=== PATIENT | male | born 1960 | race Caucasian/White ===

== ENCOUNTER 2022-07-25 07:02 | Inpatient (IN) | payer OTHER ==
[2022-07-22 12:39] LABS: APPEARANCE,URINE CLEAR (CLEAR); BILIRUBIN,URINE NEGATIVE (NEGATIVE); COLOR,URINE LIGHT-YELLOW (YELLOW); GLUCOSE, URINE (UA) NEGATIVE (NEGATIVE); KETONES,URINE NEGATIVE (NEGATIVE); LEUKOCYTE ESTERASE ,URINE NEGATIVE Leu/uL (NEGATIVE); NITRATE,URINE NEGATIVE (NEGATIVE); OCCULT BLOOD,URINE NEGATIVE (NEGATIVE); PROTEIN,URINE NEGATIVE (NEGATIVE); UROBILINOGEN,URINE 0.2 mg/dL (0.2-1.0)
[2022-07-22 12:52] VITALS: BP 127/74
[2022-07-22 12:52] LABS: BASOPHILS % (AUTO) 0.6 % (0.0-5.0); EOSINOPHILS % (AUTO) 6.6 % (0.0-8.0); HEMATOCRIT 42.8 % (42-54); LYMPHOCYTES % (AUTO) 27.2 % (21.0-51.0); MEAN CORPUSCULAR HEMOGLOBIN 28.9 pg (27.0-33.0); MEAN CORPUSCULAR HGB CONC 31.8 g/dL (32.0-36.0); MEAN CORPUSCULAR VOLUME 90.9 fL (79-99); MONOCYTES % (AUTO) 8.5 % (3.0-13.0); NEUTROPHILS % (AUTO) 56.9 % (40.0-77.0); PLATELET COUNT (AUTO) 297 K/uL (130-400); RED BLOOD CELL COUNT(AUTO) 4.71 MIL/uL (4.50-6.20); RED CELL DISTRIBUTION WIDTH 13.1 % (11.0-15.5); WHITE BLOOD COUNT (AUTO) 6.2 K/uL (4.8-10.8)
[2022-07-22 13:04] LABS: INR 0.97 (0.85-1.15); PROTHROMBIN TIME 10.6 SEC (9.6-11.6)
[2022-07-22 13:05] LABS: PARTIAL THROMBOPLASTIN TIME 29.8 SEC (26.3-35.5)
[2022-07-22 13:12] LABS: ALBUMIN 3.6 g/dL (3.5-5.0); CARBON DIOXIDE 31 mmol/L (21-32); CHLORIDE 102 mmol/L (101-111); CREATININE 0.9 mg/dL (0.5-1.5); GLOMERULAR FILTR. RATE CALC 96 mL/min (>90); GLUCOSE,RANDOM 93 mg/dL (70-105); POTASSIUM 4.1 mmol/L (3.5-5.1); SODIUM SERUM 140 mmol/L (136-145); UREA NITROGEN, BLOOD 11 mg/dL (7-18)
[2022-07-22 13:28] LABS: CRP QUANTITATIVE < 2.00 mg/L (0.00-9.0)
[2022-07-25] VITALS (23 sets, daily range): BP systolic 108–175; BP diastolic 64–98
[~2022-07-25] VITALS: Ht 177.8 cm; Wt 86.5 kg
[~2022-07-25 07:02] MED LIST: ALBU90AE2 IH; BUSP15TA3 PO; DOCU240C25 PO; EZET10TA48 PO; FAMO40TA7 PO; FLUO20CA36 PO; FLUT1BLS8 IH; LEVO100C4 PO; OMEP40CA21 PO; ROSU20TA31 PO; TRAM50TA4 PO; UMEC62.5 IH; VIT1CAPS47 PO
[2022-07-25] MEDS ORDERED: CEFAZOLIN SODIUM 2 GM VIAL ONE (07:29)
[2022-07-25] MEDS ORDERED: LACTATED RINGERS 1000ML 1,000 ML IV ONE (07:30)
[2022-07-25] MEDS ORDERED: CEFAZOLIN SODIUM 1 GM VIAL ONE (08:10)
[2022-07-25] MEDS ORDERED: CEFAZOLIN SODIUM 2 GM VIAL IVPB ONE (11:26)
[2022-07-25] MEDS ORDERED: SUCCINYLCHOLINE CHLORIDE 20 MG/ML 10 ML VIAL ONE (13:06)
[2022-07-25] MEDS ORDERED: ROCURONIUM 10MG/1ML SYR 10 MG/ML ML ONE ×2 (13:06→13:07)
[2022-07-25] MEDS ORDERED: LIDOCAINE PF 100MG/5ML (2%) SYRINGE 5ML ONE (13:06)
[2022-07-25] MEDS ORDERED: NEOSTIGMINE 5MG/5ML SYR IV ONE ×2 (13:07→14:28)
[2022-07-25] MEDS ORDERED: ONDANSETRON 4MG INJ ONE (13:07)
[2022-07-25] MEDS ORDERED: PROPOFOL 10 MG/ML 20ML VIAL IV ONE (13:07)
[2022-07-25] MEDS ORDERED: GLYCOPYRROLATE 1 MG/5 ML SYRINGE ONE (13:07)
[2022-07-25] MEDS ORDERED: MIDAZOLAM HCL 1 MG/ML 2ML VIAL ONE (13:07)
[2022-07-25] MEDS ORDERED: FENTANYL CITRATE PF 50 MCG/1 ML 2ML VIAL ONE (13:07)
[2022-07-25] MEDS ORDERED: FE FUMARATE/FA/MV, MIN COMB#15 1 TAB PO PRN (14:30)
[2022-07-25] MEDS ORDERED: KCL 20 MEQ ERTAB PO PRN (14:30)
[2022-07-25] MEDS ORDERED: CALCIUM CARB 500MG PO PRN (14:30)
[2022-07-25] MEDS ORDERED: LIDOCAINE HCL-MPF 1% 2ML VIAL IV PRN (14:30)
[2022-07-25] MEDS ORDERED: DiphenhydrAMINE HCL 50 MG/ML VIAL IVP PRN (14:30)
[2022-07-25] MEDS ORDERED: CYCLOBENZAPRINE HCL 10 MG TABLET PO PRN (14:30)
[2022-07-25] MEDS ORDERED: POTASSIUM CHLORIDE 10% ELIXIR 20 MEQ/15 ML UDCUP PO PRN (14:30)
[2022-07-25] MEDS ORDERED: ONDANSETRON 4MG INJ IVP PRN (14:30)
[2022-07-25] MEDS ORDERED: POTASSIUM CHLORIDE 20MEQ/100ML 100 ML IV PRN (14:30)
[2022-07-25] MEDS ORDERED: TRAMADOL HCL 50 MG TABLET PO PRN (14:30)
[2022-07-25] MEDS ORDERED: MEPERIDINE-PF 25 MG/ML SYG ONE ×2 (15:08→15:12)
[2022-07-25] MEDS: KETOROLAC 15MG/ML VIAL (15MG/ML) IV SCH ×2 (15:42→22:35)
[2022-07-25] MEDS: 0.9%NACL 1000ML 1,000 ML IV SCH (16:02)
[2022-07-25] MEDS ORDERED: ALBUTEROL SULFATE IH PRN (18:00)
[2022-07-25] MEDS: PHARMACY COMMUNICATION MISC SCH ×5 (19:00→23:00)
[2022-07-25] MEDS: CEFAZOLIN SODIUM 1 GM VIAL IVP SCH (20:22)
[2022-07-25] MEDS: FLUOXETINE HCL 20 MG CAPSULE PO SCH (20:23)
[2022-07-25] MEDS: MULTIVITAMIN TABLET PO SCH (20:23)
[2022-07-25] MEDS: DOCUSATE SODIUM 100 MG CAP PO SCH (20:23)
[2022-07-25] MEDS: FLUTICASONE PROPION IH SCH (20:24)
[2022-07-25] MEDS: SALMETEROL IH SCH (20:24)
[2022-07-25] MEDS: Rosuvastatin Calcium 20 MG PO SCH (20:25)
[2022-07-25] MEDS: BUSPIRONE HCL 5 MG TABLET PO SCH (20:26)
[2022-07-25] MEDS: EZETIMIBE 10 MG TAB PO SCH (20:28)
[2022-07-25] MEDS: GABAPENTIN 100 MG CAPSULE PO SCH (20:28)
[2022-07-25] MEDS ORDERED: NON-FORMULARY MEDICATION 1 EACH (Buspirone HCl 15 MG) PO SCH (21:00)
[2022-07-25] MEDS ORDERED: NON-FORMULARY MEDICATION 1 EACH (Vit C/E/Zn/Coppr/Lutein/Zeaxan (Preservision Areds 2 Soft PO SCH (21:00)
[2022-07-25] MEDS ORDERED: ALBUTEROL INHALER 90MCG/INH IH PRN (22:30)
[2022-07-26] MEDS: 0.9%NACL 1000ML 1,000 ML IV SCH ×2 (00:30→10:30)
[2022-07-26] MEDS: PHARMACY COMMUNICATION MISC SCH ×5 (01:00→20:36)
[2022-07-26] MEDS: CEFAZOLIN SODIUM 1 GM VIAL IVP SCH (02:43)
[2022-07-26] MEDS: HYDROCODONE/ACETAMINOPHEN 5/325 MG TAB PO PRN ×3 (02:43→20:34)
[2022-07-26 04:38] VITALS: BP 114/64
[2022-07-26 05:37] LABS: HEMATOCRIT 33.3 % (42-54); MEAN CORPUSCULAR HEMOGLOBIN 29.6 pg (27.0-33.0); MEAN CORPUSCULAR HGB CONC 32.1 g/dL (32.0-36.0); MEAN CORPUSCULAR VOLUME 92.2 fL (79-99); RED BLOOD CELL COUNT(AUTO) 3.61 MIL/uL (4.50-6.20); RED CELL DISTRIBUTION WIDTH 13.3 % (11.0-15.5); WHITE BLOOD COUNT (AUTO) 7.6 K/uL (4.8-10.8)
[2022-07-26] MEDS: LEVOTHYROXINE 100 MCG TABLET PO SCH (05:46)
[2022-07-26] MEDS: KETOROLAC 15MG/ML VIAL (15MG/ML) IV SCH (05:47)
[2022-07-26 05:49] LABS: CREATININE 0.8 mg/dL (0.5-1.5); POTASSIUM 4.1 mmol/L (3.5-5.1)
[2022-07-26] MEDS ORDERED: NON-FORMULARY MEDICATION 1 EACH (Levothyroxine Sodium (Levothyroxine) 100 MCG) PO SCH (07:30)
[2022-07-26 08:13] VITALS: BP 119/74
[2022-07-26] MEDS ORDERED: NON-FORMULARY MEDICATION 1 EACH (Famotidine 40 MG) PO SCH (09:00)
[2022-07-26] MEDS ORDERED: DOCUSATE CALCIUM 240 MG CAP PO SCH (09:00)
[2022-07-26] MEDS ORDERED: NON-FORMULARY MEDICATION 1 EACH (Omeprazole 40 MG) PO SCH (09:00)
[2022-07-26] MEDS: SALMETEROL IH SCH ×2 (09:00→20:29)
[2022-07-26] MEDS: FLUTICASONE PROPION IH SCH ×2 (09:00→20:29)
[2022-07-26] MEDS: POLYETHYLENE GLYCOL 3350 17 GM POWD.PACK PO SCH (09:42)
[2022-07-26] MEDS: PANTOPRAZOLE 40 MG TAB DR PO SCH (09:43)
[2022-07-26] MEDS: FLUOXETINE HCL 20 MG CAPSULE PO SCH ×2 (09:43→20:25)
[2022-07-26] MEDS: DOCUSATE SODIUM 100 MG CAP PO SCH ×2 (09:43→20:25)
[2022-07-26] MEDS: MULTIVITAMIN TABLET PO SCH ×2 (09:43→20:26)
[2022-07-26] MEDS: GABAPENTIN 100 MG CAPSULE PO SCH ×3 (09:43→20:28)
[2022-07-26] MEDS: FAMOTIDINE 20MG TAB PO SCH (09:43)
[2022-07-26] MEDS: BUSPIRONE HCL 5 MG TABLET PO SCH ×2 (11:03→20:29)
[2022-07-26 11:04] VITALS: BP 108/56
[2022-07-26] MEDS: KETOROLAC 15MG/ML VIAL (15MG/ML) IV PRN (14:48)
[2022-07-26] MEDS: EZETIMIBE 10 MG TAB PO SCH (20:26)
[2022-07-26] MEDS: Rosuvastatin Calcium 20 MG PO SCH (20:29)
[2022-07-26 20:31] VITALS: BP 129/60
[2022-07-27 00:03] VITALS: BP 117/60
[2022-07-27 04:10] VITALS: BP 113/62
[2022-07-27] MEDS: HYDROCODONE/ACETAMINOPHEN 5/325 MG TAB PO PRN ×2 (04:53→16:18)
[2022-07-27] MEDS: LEVOTHYROXINE 100 MCG TABLET PO SCH (04:53)
[2022-07-27] MEDS: KETOROLAC 15MG/ML VIAL (15MG/ML) IV PRN (06:04)
[2022-07-27 07:43] VITALS: BP 101/62
[2022-07-27] MEDS: PANTOPRAZOLE 40 MG TAB DR PO SCH (08:25)
[2022-07-27] MEDS: FAMOTIDINE 20MG TAB PO SCH (08:25)
[2022-07-27] MEDS: DOCUSATE SODIUM 100 MG CAP PO SCH (08:25)
[2022-07-27] MEDS: FLUOXETINE HCL 20 MG CAPSULE PO SCH (08:25)
[2022-07-27] MEDS: MULTIVITAMIN TABLET PO SCH (08:26)
[2022-07-27] MEDS: GABAPENTIN 100 MG CAPSULE PO SCH ×2 (08:26→13:08)
[2022-07-27] MEDS: POLYETHYLENE GLYCOL 3350 17 GM POWD.PACK PO SCH (08:26)
[2022-07-27] MEDS: FLUTICASONE PROPION IH SCH (09:00)
[2022-07-27] MEDS: BUSPIRONE HCL 5 MG TABLET PO SCH (09:00)
[2022-07-27] MEDS: SALMETEROL IH SCH (09:00)
[2022-07-27 11:30] VITALS: BP 121/66
[2022-07-27] MEDS ORDERED: ASPI-1012 PO (12:12)
[2022-07-27] MEDS ORDERED: CYCL-309 PO (12:12)
[2022-07-27] MEDS ORDERED: HYDR-4060 PO (12:12)
[2022-07-27] MEDS ORDERED: GABA100C PO (12:12)
[2022-07-27 15:55] VITALS: BP 114/63
[2022-07-28] MEDS ORDERED: BISACODYL 10 MG SUPP.RECT RC PRN (14:30)
== END 2022-07-27 17:40 | disposition home health service (06) | DRG 483 ==
LOC: DAHIP 07:02 → 4BH 16:40 → EDSTATUS 02-24 12:04
PROVIDERS: ADMIT Student in an Organized Health Care Education/Training Program; ATTEND Student in an Organized Health Care Education/Training Program
PROC: 0RRJ00Z Replacement of Right Shoulder Joint with Reverse Ball and Socket Synthetic Substitute, Open Approach (ICD-10-PCS; principal; 2022-07-25 11:24)
DX: M75.101 Unspecified rotator cuff tear or rupture of right shoulder, not specified as traumatic (principal); D62 Acute posthemorrhagic anemia; Z20.822 Contact with and (suspected) exposure to COVID-19
CPT/HCPCS: 36415; 73030; 80048; 81003; 82040; 82948; 84134; 85025; 85027; 85610; 85730; 86140; 87088; 87426; 87641; 97039; G0378; J0330; J0690; J1885; J2001; J2175; J2250; J2405; J2704; J2710; J3010; J3490; J7120

== ENCOUNTER → 2024-05-28 | Outpatient (CLI) | payer OTHER ==
[~2024-05-28] MED LIST changes: -ALBU90AE2 IH; +ALBU90AE3 IH; +ASPI-1012 PO; +CYCL-309 PO; +FLUO-418 PO; -FLUO20CA36 PO; +GABA100C PO; +HYDR-4060 PO; -ROSU20TA31 PO; +ROSU20TA98 PO; -TRAM50TA4 PO
--- NOTE | 2024-05-29 17:57 | HMCSR ---
APPROVED REPORT Indications Rule Out AAA Duplex Results A/PTransverseLongitudinalVelocityWaveform Proximal Aorta 1.85cm1.95cm2.00cm81.50 cm/sec Mid Aorta 2.20cm2.26cm2.12tj911.10 cm/sec Distal Aorta 2.44cm3.29cm2.71cm63.20 cm/sec Rt. Common Iliac Artery1.01cm1.06cm0.83aq602.00 cm/sec Lt. Common Iliac Artery 1.08cm1.13cm0.82wt649.40 cm/sec Techologist Impression Distal aorta measures 2.44 cm x 3.29 cm x 2.7cm, with mild atherosclerotic plaque. The right and left common iliac arteries are patent and normal in size without evidence of aneurysm. Conclusion Ectatic distal abdomenal aorta does not meet criteria for aneurysm, but is clearly abnormal. Conclusion Ectatic distal abdomenal aorta does not meet criteria for aneurysm, but is clearly abnormal.
== END | disposition home or self-care (01) ==
LOC: SHCH 07:32
PROVIDERS: ATTEND Internal Medicine Cardiovascular Disease
DX: I70.0 Atherosclerosis of aorta (principal); I71.40 Abdominal aortic aneurysm, without rupture, unspecified
CPT/HCPCS: 93978